=== PATIENT | male | born 1970 | race Caucasian/White ===

== ENCOUNTER 2017-08-01 10:30 | Emergency (ER) | payer MEDICARE ==
[~2017-08-01] VITALS: Ht 177.8 cm; Wt 65.9 kg
[2017-08-01 10:40] VITALS: Ht 177.8 cm; Wt 65.9 kg
[2017-08-01] MEDS ORDERED: ZYPREXA ZYD10 MG/TAB PO (10:46)
[2017-08-01] MEDS ORDERED: AMBIEN5 MG PO (10:46)
[2017-08-01] MEDS ORDERED: VALIUM10 MG PO (10:47)
[2017-08-01 12:01] LABS: BASOPHILS 0.1 % (0-2); EOSINOPHILS 0.4 % (0-7); HEMATOCRIT 40.7 % (42.0-54.0); HEMOGLOBIN 14.8 g/dL (13.5-17.5); IMMATURE GRANULOCYTES 0.4 % (0-5); LYMPHOCYTES 16.5 % (15-50); MCH 29.3 pg (26.0-34.0); MCHC 36.4 g/dL (31.0-37.0); MCV 80.6 fL (80.0-100.0); MEAN PLATELET VOLUME 9.5 fL (7.4-10.4); MONOCYTES 11.7 % (2-11); NEUTROPHILS 70.9 % (40-80); PLATELET COUNT 222 10x3/uL (130-400); RBC 5.05 10x6/uL (4.20-6.10); RDW 14.4 % (11.5-14.5); WBC 8.2 10x3/uL (4.8-10.8)
[2017-08-01 12:13] LABS: ALBUMIN 3.6 g/dL (3.4-5.0); ALKALINE PHOSPHATASE 63 U/L (46-116); ALT (SGPT) 13 U/L (10-68); BILIRUBIN - TOTAL 0.26 mg/dL (0.2-1.3); CALC OSMOLALITY 267 mosm/kg (275-300); CALCIUM 9.5 mg/dL (8.5-10.1); CARBON DIOXIDE 28.4 mmol/L (21.0-32.0); CHLORIDE - SERUM 99 mmol/L (98-107); CREATININE - SERUM 0.8 mg/dL (0.6-1.3); GLUCOSE 125 mg/dL (74-106); POTASSIUM - SERUM 3.8 mmol/L (3.5-5.1); PROTEIN - SERUM 7.8 g/dL (6.4-8.2); SODIUM 134 mmol/L (136-145); UREA NITROGEN 11 mg/dL (7-18); eGFR NON AFRICAN AMERICAN > 90 mL/min (90-120)
[2017-08-01] MEDS ORDERED: OMEPRAZOLE40 MG PO (13:00)
[2017-08-01 13:22] VITALS: BP 119/64
== END 2017-08-01 13:22 | disposition home or self-care (01) ==
LOC: D.ER 10:30
PROVIDERS: Family Medicine
DX: K92.0 Hematemesis (principal); R13.10 Dysphagia, unspecified; R12 Heartburn; K21.9 Gastro-esophageal reflux disease without esophagitis

== ENCOUNTER 2018-06-11 13:49 | Emergency (ER) | payer MEDICARE ==
[~2018-06-11] VITALS: Ht 177.8 cm; Wt 72.7 kg
[~2018-06-11 13:49] MED LIST: AMBIEN5 MG PO; OMEPRAZOLE40 MG PO; VALIUM10 MG PO; ZYPREXA ZYD10 MG/TAB PO
[2018-06-11 14:02] VITALS: BP 130/75; Ht 177.8 cm; Wt 72.7 kg
[2018-06-11 17:15] LABS: ALBUMIN 3.7 g/dL (3.4-5.0); ALKALINE PHOSPHATASE 66 U/L (46-116); ALT (SGPT) 20 U/L (10-68); BILIRUBIN - TOTAL 0.32 mg/dL (0.2-1.3); CALC OSMOLALITY 278 mosm/kg (275-300); CALCIUM 8.5 mg/dL (8.5-10.1); CARBON DIOXIDE 25.2 mmol/L (21.0-32.0); CHLORIDE - SERUM 103 mmol/L (98-107); CREATININE - SERUM 0.9 mg/dL (0.6-1.3); GLUCOSE 93 mg/dL (74-106); PROTEIN - SERUM 7.2 g/dL (6.4-8.2); SODIUM 139 mmol/L (136-145); UREA NITROGEN 16 mg/dL (7-18); eGFR NON AFRICAN AMERICAN > 90 mL/min (90-120)
[2018-06-11 17:25] LABS: BASOPHILS 0.2 % (0-2); EOSINOPHILS 0.8 % (0-7); HEMATOCRIT 34.3 % (42.0-54.0); HEMOGLOBIN 12.3 g/dL (13.5-17.5); IMMATURE GRANULOCYTES 0.2 % (0-5); LYMPHOCYTES 26.1 % (15-50); MCH 28.6 pg (26.0-34.0); MCHC 35.9 g/dL (31.0-37.0); MCV 79.8 fL (80.0-100.0); MEAN PLATELET VOLUME 8.5 fL (7.4-10.4); MONOCYTES 15.5 % (2-11); NEUTROPHILS 57.2 % (40-80); PLATELET COUNT 230 10x3/uL (130-400); RDW 14.7 % (11.5-14.5); WBC 5.9 10x3/uL (4.8-10.8)
== END 2018-06-11 17:49 | disposition home or self-care (01) ==
LOC: D.ER 13:49
PROVIDERS: Emergency Medicine
DX: S70.12XA Contusion of left thigh, initial encounter (principal); S70.11XA Contusion of right thigh, initial encounter; F17.200 Nicotine dependence, unspecified, uncomplicated